=== PATIENT | female | born 1990 | race Two or more races ===

== ENCOUNTER 2019-01-22 23:55 | Observation (INO) | payer OTHER ==
[~2019-01-22] VITALS: Ht 160 cm; Wt 95.7 kg
[2019-01-23 00:50] VITALS: BP 118/57
== END 2019-01-23 01:27 | disposition home or self-care (01) ==
LOC: 4S 23:55
PROVIDERS: ADMIT Obstetrics & Gynecology; ATTEND Obstetrics & Gynecology
DX: O62.9 Abnormality of forces of labor, unspecified (principal); Z3A.39 39 weeks gestation of pregnancy

== ENCOUNTER 2019-02-05 17:15 | Inpatient (IN) | payer OTHER ==
[~2019-02-05] VITALS: Ht 160 cm; Wt 95.3 kg
[2019-02-05] MEDS ORDERED: OXYTOCIN 30 UNITS/LACT RINGERS 500 ML IV ONE (17:37)
[2019-02-05] MEDS ORDERED: RINGERS SOLUTION,LACTATED 1,000 ML IV PRN (17:37)
[2019-02-05] MEDS ORDERED: PREN-217 PO (17:41)
[2019-02-05] MEDS ORDERED: METOCLOPRAMIDE HCL 5 MG/ML 2 ML VIAL IVP PRN (17:45)
[2019-02-05] MEDS ORDERED: CITRIC ACID/SODIUM CITRATE 30 ML SOLUTION UDCUP PO PRN (17:45)
[2019-02-05] MEDS ORDERED: DINOPROSTONE 10 MG VAGINAL SUPPOSITORY VG ONE (17:45)
[2019-02-05] MEDS ORDERED: FentaNYL CITRATE-PF 100 MCG/2 ML VIAL IVP PRN (17:45)
[2019-02-05 18:38] LABS: BASOPHILS % (AUTO) 0.3 % (0.0-2.0); EOSINOPHILS % (AUTO) 0.7 % (1.0-6.0); HEMATOCRIT 39.5 % (36-46); HEMOGLOBIN 12.7 g/dL (12.0-16.0); LYMPHOCYTES # (AUTO) 2.5 K/uL (1.0-4.8); LYMPHOCYTES % (AUTO) 24.8 % (22.0-44.0); MEAN CORPUSCULAR HEMOGLOBIN 26.5 pg (26.0-34.0); MEAN CORPUSCULAR HGB CONC 32.2 G/dL (31.0-37.0); MEAN CORPUSCULAR VOLUME 82 fL (80-100); MONOCYTES # (AUTO) 0.6 K/uL (0.1-1.0); MONOCYTES % (AUTO) 5.9 % (2.0-9.0); NEUTROPHILS # (AUTO) 6.8 K/uL (1.8-7.7); NEUTROPHILS % (AUTO) 68.3 % (40.0-70.0); PLATELET COUNT (AUTO) 292 K/uL (150-450); RED BLOOD CELL COUNT(AUTO) 4.79 MIL/uL (4.00-5.20); RED CELL DISTRIBUTION WIDTH 14.3 % (11.5-14.5)
[2019-02-05 18:46] VITALS: BP 114/71
[2019-02-05] MEDS: RINGERS SOLUTION,LACTATED 1,000 ML IV SCH (18:51)
[2019-02-05] MEDS ORDERED: OXYGEN THERAPY IH SCH (20:00)
[2019-02-06] MEDS: RINGERS SOLUTION,LACTATED 1,000 ML IV SCH (01:38)
[2019-02-06] MEDS ORDERED: -PHARMACY NOTE- MISC ONE (05:45)
[2019-02-06] MEDS ORDERED: ROPIVACAINE HCL/PF 0.2% 100 ML ED ONE (07:39)
[2019-02-06] MEDS ORDERED: ROPIVACAINE HCL/PF 0.2% 100 ML ED PRN (08:07)
[2019-02-06] MEDS ORDERED: DiphenhydrAMINE HCL 50 MG/ML VIAL IVP PRN (08:15)
[2019-02-06] MEDS ORDERED: NALBUPHINE HCL 10 MG/ML VIAL IVP PRN (08:15)
[2019-02-06] MEDS ORDERED: ONDANSETRON HCL 4 MG/2 ML VIAL IVP PRN (08:15)
[2019-02-06] MEDS ORDERED: OXYTOCIN 30 UNITS/LACT RINGERS 500 ML IV ONE ×2 (08:36→10:02)
[2019-02-06] MEDS ORDERED: LIDOCAINE/PF 1% 30 ML VIAL INJ PRN (10:15)
[2019-02-06] MEDS ORDERED: MAGNESIUM HYDROXIDE SUSPENSION 30 ML UDCUP PO PRN (10:15)
[2019-02-06] MEDS ORDERED: OxyCODONE HCL/ACETAMINOPHEN 5-325 MG TABLET PO PRN ×2 (10:15)
[2019-02-06] MEDS ORDERED: GLYCERIN/WITCH HAZEL LEAF 40 PADS JAR TP PRN (10:15)
[2019-02-06] MEDS ORDERED: LANOLIN 7 GM OINTMENT TP PRN (10:15)
[2019-02-06] MEDS ORDERED: BENZOCAINE 20%/MENTHOL 56 GM SPRAY CANISTER TP PRN (10:15)
[2019-02-06] MEDS: IBUPROFEN 800 MG TABLET PO PRN ×3 (10:38→23:35)
[2019-02-07] MEDS: IBUPROFEN 800 MG TABLET PO PRN ×2 (05:48→13:04)
[2019-02-07 06:52] LABS: BASOPHILS % (AUTO) 0.6 % (0.0-2.0); EOSINOPHILS % (AUTO) 1.1 % (1.0-6.0); HEMOGLOBIN 12.2 g/dL (12.0-16.0); LYMPHOCYTES # (AUTO) 2.6 K/uL (1.0-4.8); LYMPHOCYTES % (AUTO) 27.7 % (22.0-44.0); MEAN CORPUSCULAR HEMOGLOBIN 26.6 pg (26.0-34.0); MEAN CORPUSCULAR HGB CONC 32.1 G/dL (31.0-37.0); MEAN CORPUSCULAR VOLUME 83 fL (80-100); MONOCYTES # (AUTO) 0.5 K/uL (0.1-1.0); MONOCYTES % (AUTO) 5.3 % (2.0-9.0); NEUTROPHILS # (AUTO) 6.1 K/uL (1.8-7.7); NEUTROPHILS % (AUTO) 65.3 % (40.0-70.0); PLATELET COUNT (AUTO)-OB 243 K/uL (150-450); RED BLOOD CELL COUNT(AUTO) 4.59 MIL/uL (4.00-5.20); RED CELL DISTRIBUTION WIDTH 14.3 % (11.5-14.5)
[2019-02-07] MEDS ORDERED: IBUP-2071 PO (09:02)
== END 2019-02-07 13:10 | disposition home or self-care (01) | DRG 560 ==
LOC: OBSVTOIN 17:15 → 4S 17:15
PROVIDERS: ADMIT Obstetrics & Gynecology; ATTEND Obstetrics & Gynecology
PROC: 10D07Z6 Extraction of Products of Conception, Vacuum, Via Natural or Artificial Opening (ICD-10-PCS; principal; 2019-02-06)
PROC: 0HQ9XZZ Repair Perineum Skin, External Approach (ICD-10-PCS; 2019-02-06)
PROC: 3E0R3BZ Introduction of Anesthetic Agent into Spinal Canal, Percutaneous Approach (ICD-10-PCS; 2019-02-06)
PROC: 00HU33Z Insertion of Infusion Device into Spinal Canal, Percutaneous Approach (ICD-10-PCS; 2019-02-06)
DX: O48.0 Post-term pregnancy (principal); O70.0 First degree perineal laceration during delivery; Z37.0 Single live birth; O76 Abnormality in fetal heart rate and rhythm complicating labor and delivery
CPT/HCPCS: 86850; 86900; 86901; J2590; J2795; J3010; J7120